=== PATIENT | female | born 1980 | race Caucasian/White ===

== ENCOUNTER 2022-03-03 08:58 | Emergency (ER) | payer OTHER ==
[2022-03-03 09:09] VITALS: BP 185/101
[2022-03-03 10:50] LABS: RAPID STREP SCREEN Negative (Negative)
[2022-03-03] MEDS ORDERED: DEXAMETHASONE 10 MG/ML VIAL PO STA (11:38)
[2022-03-03] MEDS ORDERED: CHERRY SYRUP 10 ML UDC PO ONE (11:38)
--- NOTE | 2022-03-03 11:41 | ED Physician Documentation ---
PD HPI PED ILLNESS - Stated complaint Stated Complaint: COUGH/SORE THROAT - Chief complaint Chief Complaint: Heent - History obtained from History obtained from: Patient - Additional information Additional information: Otherwise healthy 41-year-old woman presents with upper respiratory illness for the last 3 days or so. It started with a sore throat and she also developed cough. There is minimal runny nose. No high fevers. 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 She lost her voice today. Review of Systems Constitutional: denies: Fever, Chills Nose: reports: Rhinorrhea / runny nose Throat: reports: Sore throat Respiratory: reports: Cough. denies: Dyspnea PD PAST MEDICAL HISTORY - Allergies Allergies/Adverse Reactions: Allergies Allergy/AdvReac Type Severity Reaction Status Date / Time No Known Drug Allergies Allergy Verified 03/03/22 09:09 PD ED PE NORMAL - Vitals Vital signs reviewed: Yes - General General: Alert and oriented X 3, No acute distress - HEENT HEENT: PERRL, EOMI - Neck Neck: Other (Laryngitic voice, red tonsillar pillars without swelling or exudates, mild cervical adenopathy, Normal TMs) - Respiratory Respiratory: No respiratory distress, Clear bilaterally - Abdomen Abdomen: Non tender - Derm Derm: No rash - Neuro Neuro: Alert and oriented X 3, Normal speech Results - Vitals Vitals: Vital Signs - 24 hr 03/03/22 09:07 Temperature 37.1 C Heart Rate 114 H Respiratory 20 Rate Blood Pressure 185/101 H O2 Saturation 99 Oxygen O2 Source Room air - Labs Labs: Laboratory Tests 03/03/22 09:12 Group A Strep Rapid Negative PD MEDICAL DECISION MAKING - ED course ED course: 41-year-old woman with URI with laryngitis. Strep negative, home COVID-negative but PCR pending. Treated here with 10 mg of Decadron and discussed conservative care. Departure - Departure Disposition: 01 Home, Self Care Clinical Impression: Laryngitis, Viral URI Condition: Good Record reviewed to determine appropriate education?: Yes Instructions: ED Viral Syndrome Comments: Tylenol and/or ibuprofen for aches and pains, drink plenty of fluids and you can also use [id number] remedies for the sore throat such as Chloraseptic and lozenges. Return for new or worsening symptoms. You have a Covid test pending. You need to self quarantine until the result is done and negative. Do not leave your house. Do not get near anybody. The results should be done in 48 to 72 hours. We will call with a positive result, the fastest way to get a negative result for confirmation though is to go to the hospital website at [email or web address], click on the my Pay-Me tab and sign up for the patient portal. Forms: Activity restrictions
== END 2022-03-03 12:01 | disposition home or self-care (01) ==
LOC: ED 08:58
DX: J04.0 Acute laryngitis (principal); J06.9 Acute upper respiratory infection, unspecified; Z20.822 Contact with and (suspected) exposure to COVID-19
CPT/HCPCS: 87070; 87430; 87635; 99282; 99283; A9270

== ENCOUNTER 2023-08-22 08:00 | Outpatient (CLI) | payer OTHER | END 2023-08-22 08:15 | disposition home or self-care (01) | LOC: LAB.N 08:00 | PROVIDERS: ATTEND Physician Assistant Medical | DX: L03.116 Cellulitis of left lower limb (principal) | CPT/HCPCS: 87070; 87181; 87205 ==